=== PATIENT | female | born 1995 | race Caucasian/White ===

== ENCOUNTER 2017-01-09 20:02 | Outpatient (CLI) | payer OTHER ==
[2017-01-09 21:49] LABS: HEMOGLOBIN 11.8 gm/dl (12.3-15.3); RED BLOOD COUNT 3.72 M/UL (4.00-5.10); WHITE BLOOD COUNT 8.2 K/UL (4.5-11.0)
== END 2017-01-10 13:04 | disposition home or self-care (01) ==
LOC: GENOP 20:02 → OB 21:22 → GENOP 21:22 → OB 01-10 13:04 → GENOP 01-10 13:04 → OB 01-10 13:04
PROVIDERS: Obstetrics & Gynecology
DX: O99.89 Other specified diseases and conditions complicating pregnancy, childbirth and the puerperium (principal); R51 Headache; R03.0 Elevated blood-pressure reading, without diagnosis of hypertension; Z3A.35 35 weeks gestation of pregnancy
CPT/HCPCS: 36415; 59025; 81001; 82248; 82565; 84450; 84460; 84550; 85025; 85379; 85384; 85610; 85730; G0378

== ENCOUNTER 2017-01-13 14:50 | Inpatient (IN) | payer OTHER ==
[~2017-01-13] VITALS: Ht 160 cm; Wt 104.8 kg
[2017-01-14 07:57] LABS: HEMOGLOBIN 12.6 gm/dl (12.3-15.3); RED BLOOD COUNT 4.05 M/UL (4.00-5.10); WHITE BLOOD COUNT 11.9 K/UL (4.5-11.0)
[2017-01-14 08:09] LABS: BUN/CREATININE RATIO 18 (0-10)
[2017-01-15 03:23] LABS: HEMOGLOBIN 11.4 gm/dl (12.3-15.3)
[2017-01-16] MEDS ORDERED: NORCO 5-325 TA1 EACH PO (11:59)
== END 2017-01-16 11:30 | disposition home or self-care (01) | DRG 774 ==
LOC: GENOP 14:50 → OB 18:00
PROVIDERS: Obstetrics & Gynecology; ADMIT Obstetrics & Gynecology
PROC: 10E0XZZ Delivery of Products of Conception, External Approach (ICD-10-PCS; principal; 2017-01-16)
PROC: 10907ZC Drainage of Amniotic Fluid, Therapeutic from Products of Conception, Via Natural or Artificial Opening (ICD-10-PCS; 2017-01-16)
PROC: 3E033VJ Introduction of Other Hormone into Peripheral Vein, Percutaneous Approach (ICD-10-PCS; 2017-01-16)
PROC: 0U7C7ZZ Dilation of Cervix, Via Natural or Artificial Opening (ICD-10-PCS; 2017-01-16)
PROC: 0W8NXZZ Division of Female Perineum, External Approach (ICD-10-PCS; 2017-01-16)
DX: O15.1 Eclampsia complicating labor (principal); Z3A.35 35 weeks gestation of pregnancy; Z37.0 Single live birth
CPT/HCPCS: 36415; 51702; 80053; 81001; 82800; 85014; 85018; 85025; 85610; 85730; 90715; J1580; J2300; J2590; J2795; J3010; J3370; J7030; J7120